=== PATIENT | female | born 1995 | race Caucasian/White ===

== ENCOUNTER 2020-09-05 10:33 | Emergency (ER) | payer OTHER, SELFPAY ==
--- NOTE | ~2020-09-05 | XR_ITS ---
EXAMINATION: XR chest 1V portable 09/05/2020 11:09 INDICATION: Cough PROCEDURE: AP portable chest COMPARISON: No prior studies for comparison. FINDINGS: The lungs are clear. The cardiomediastinal silhouette is within normal limits. There are no pleural effusions. There is no pneumothorax suspected. IMPRESSION: 1: NO ACUTE CARDIOPULMONARY DISEASE. Reviewed, dictated and finalized at location A. [employer] EQUIPMENT REPAIRER
[2020-09-05 10:48] VITALS: BP 127/80; PULSE 84; RESP 20; TEMP 36.7; O2SAT 100
[2020-09-05 11:56] VITALS: BP 124/81; PULSE 75; RESP 20; O2SAT 100
--- NOTE | 2020-09-05 12:35 | ED.GENADULT ---
HPI - General Adult General Chief complaint: Upper Respiratory Infection Stated complaint: Body Aches Time Seen by Provider: 09/05/20 10:43 Source: patient Mode of arrival: ambulatory Limitations: no limitations History of Present Illness HPI narrative: Patient is a 25-year-old female who presents to emergency department for evaluation congestion rhinorrhea nonproductive cough some body aches and chills for the last 2 to 3 days denies any dyspnea chest pain vomiting diarrhea sick contacts has been trying [id number] medications with some improvement is currently breast-feeding presents in no distress Related Data Allergies Allergy/AdvReac Type Severity Reaction Status Date / Time NUTS Allergy Severe THROAT Uncoded 09/05/20 10:50 SALVATORE Review of Systems Review of Systems: All systems reviewed & are unremarkable except as noted in HPI and below PMFSH Past Medical History Medical History Ear infection Surgical History Surgical History History of ear surgery Social History Social History Gender identity (if verbalized by the patient): Female Exam Narrative: Exam Narrative: GENERAL: Well-appearing, well-nourished, and in no acute distress. HEAD: Normocephalic, atraumatic. EYES: PERRLA and EOMI. ENT: Nares clear, no rhinorrhea or epistaxis. Mucous membranes moist. CHEST: Clear to auscultation. No respiratory distress. No wheezes rales or rhonchi HEART: Regular rate and rhythm. No murmur heard. EXTREMITIES: Normal range of motion. No edema. SKIN: Warm, dry, no rash. NEURO: No focal deficits. Alert and oriented x3. Cranial nerves II through XII grossly intact PSYCH: Normal mood and affect. Course Course Emergency Course: Patient evaluated tested for Covid will be sent home to quarantine advised to follow with the on-call primary care to obtain her results she understands that this is the means by which she must get her results patient with normal vital signs ABCs intact and stable no hypoxemia no pneumonia felt appropriate for outpatient reevaluation Vital Signs Vital signs: Vital Signs Temperature 98.0 F 09/05/20 10:48 Pulse Rate 84 09/05/20 10:48 Respiratory Rate 20 09/05/20 10:48 Blood Pressure 127/80 09/05/20 10:48 Pulse Oximetry 100 09/05/20 10:48 Temperature 98.0 F 09/05/20 10:48 Pulse Rate 75 09/05/20 11:56 Respiratory Rate 20 09/05/20 11:56 Blood Pressure 124/81 09/05/20 11:56 Pulse Oximetry 100 09/05/20 11:56 Medical Decision Making MDM Narrative Medical decision making narrative: Patient tested for Covid felt appropriate for outpatient reevaluation Vital Signs Vital Signs: Vital Signs Temperature 98.0 F 09/05/20 10:48 Pulse Rate 84 09/05/20 10:48 Respiratory Rate 20 09/05/20 10:48 Blood Pressure 127/80 09/05/20 10:48 Pulse Oximetry 100 09/05/20 10:48 Temperature 98.0 F 09/05/20 10:48 Pulse Rate 75 09/05/20 11:56 Respiratory Rate 20 09/05/20 11:56 Blood Pressure 124/81 09/05/20 11:56 Pulse Oximetry 100 09/05/20 11:56 Lab Data Labs: Lab Results 09/05/20 Range/Units 11:52 SARS-CoV-2 RNA (RT-PCR) Pending Discharge Plan Discharge Clinical Impression: Upper respiratory infection Patient Disposition: Home, Self-Care Condition: Stable Instructions: Antibiotic Form, COVID-19 (Coronavirus Disease 2019) (ED) Additional Instructions: Follow up with your primary care provider within 1-2 days to set up for reevaluation and to obtain your COVID-19 results. Go to ER for shortness of breath, difficulty breathing, chest pain, fever/chills, weakness Take any prescribed medications as directed. Self quarantine and you have obtained your results and been advised otherwise by primary care If you do not have a drug allergy to t
[2020-09-05 12:57] VITALS: BP 120/84; PULSE 70; RESP 20; O2SAT 99
[2020-09-05 23:38] LABS: SARS-CoV-2 RNA PCR Positive
== END 2020-09-05 12:59 | disposition home or self-care (01) ==
PROVIDERS: Emergency Medicine Emergency Medical Services; Emergency Provider Emergency Medicine
DX: U07.1 COVID-19 (principal); J06.9 Acute upper respiratory infection, unspecified
CPT/HCPCS: 71045; 99283; C9803; U0003

== ENCOUNTER 2020-11-12 23:11 | Emergency (ER) | payer OTHER, SELFPAY ==
[2020-11-12 23:12] VITALS: BP 135/77; PULSE 62; RESP 16; TEMP 36.7; O2SAT 100
--- NOTE | 2020-11-12 23:37 | ED.GENADULT ---
HPI - General Adult General Chief complaint: Extremity Problem,Nontraumatic Stated complaint: bilateral foot pain Time Seen by Provider: 11/12/20 23:19 Source: patient Mode of arrival: ambulatory Limitations: no limitations History of Present Illness HPI narrative: Patient is a 25-year-old female who presents with bilateral plantar surface foot pain for the last couple days noting that she was standing all day working and had wet feet which were cold patient has continued to have some pain to the plantar surface of the feet since. Patient denies any injury or trauma. Patient denies other pain or concerns presents in no distress with normal gait Related Data Allergies Allergy/AdvReac Type Severity Reaction Status Date / Time NUTS Allergy Severe THROAT Uncoded 09/05/20 10:50 SALVATORE Review of Systems Review of Systems: All systems reviewed & are unremarkable except as noted in HPI and below PMFSH Past Medical History Medical History Ear infection Surgical History Surgical History History of ear surgery Social History Social History Gender identity (if verbalized by the patient): Female Exam Narrative: Exam Narrative: GENERAL: Well-appearing, well-nourished, and in no acute distress. HEAD: Normocephalic, atraumatic. EYES: PERRLA and EOMI. ENT: Nares clear, no rhinorrhea or epistaxis. Mucous membranes moist. EXTREMITIES: Normal range of motion. No edema. Tenderness of the feet bilateral plantar surfaces no abnormality remainder of feet nontender SKIN: Warm, dry, no rash. NEURO: No focal deficits. Alert and oriented x3. Cranial nerves II through XII grossly intact. Neurovascularly intact PSYCH: Normal mood and affect. Course Course Emergency Course: Patient with bilateral foot pain no distress felt appropriate for outpatient reevaluation agreeing to follow-up as instructed Vital Signs Vital signs: Vital Signs Temperature 98.1 F 11/12/20 23:12 Pulse Rate 62 11/12/20 23:12 Respiratory Rate 16 11/12/20 23:12 Blood Pressure 135/77 11/12/20 23:12 Pulse Oximetry 100 11/12/20 23:12 Temperature 98.1 F 11/12/20 23:12 Pulse Rate 62 11/12/20 23:12 Respiratory Rate 16 11/12/20 23:12 Blood Pressure 135/77 11/12/20 23:12 Pulse Oximetry 100 11/12/20 23:12 Medical Decision Making MDM Narrative Medical decision making narrative: Patients injury or pain is consistent with musculoskeletal etiology. No signs of neurological or vascular compromise on exam. Compartments and tisues are soft without signs of compartment syndrome. Pain is felt appropriate for further evaluation on an outpatient basis. Vital Signs Vital Signs: Vital Signs Temperature 98.1 F 11/12/20 23:12 Pulse Rate 62 11/12/20 23:12 Respiratory Rate 16 11/12/20 23:12 Blood Pressure 135/77 11/12/20 23:12 Pulse Oximetry 100 11/12/20 23:12 Temperature 98.1 F 11/12/20 23:12 Pulse Rate 62 11/12/20 23:12 Respiratory Rate 16 11/12/20 23:12 Blood Pressure 135/77 11/12/20 23:12 Pulse Oximetry 100 11/12/20 23:12 Discharge Plan Discharge Clinical Impression: Acute foot pain Patient Disposition: Home, Self-Care Condition: Stable Instructions: Antibiotic Form, Foot Sprain (ED) Additional Instructions: Limited weight on the affected leg until able to bear weight without pain. Rest and elevate extremity. Pain medication as needed and directed. Follow up with your doctor for further care next 7 days. Return if symptoms worsen or concerns Prescriptions: No Action fluticasone propionate [Flonase Allergy Relief] 50 mcg/actuation spray,suspension 2 spray intranasal DAILY Qty: 9.9 RF: 0 loratadine [Claritin] 10 mg tablet 10 mg PO DAILY PRN (Reason: allergy symptoms) Qty: 10 RF: 0 famotidine [Pepcid]
== END 2020-11-13 | disposition home or self-care (01) ==
LOC: ANHED 23:51
PROVIDERS: Emergency Provider Emergency Medicine
DX: M79.672 Pain in left foot (principal); M79.671 Pain in right foot
CPT/HCPCS: 99281

== ENCOUNTER 2021-01-24 13:38 | Emergency (ER) | payer OTHER, SELFPAY ==
--- NOTE | ~2021-01-24 | XR_ITS ---
EXAMINATION: XR ankle RT min 3V DATE: 01/24/2021 14:03 INDICATION: Right ankle injury and pain. TECHNIQUE: 4 views of right ankle were obtained. COMPARISON: None. FINDINGS: Bone alignment is normal. No fracture. Joint spaces are well maintained. There is an enthes ophyte at plantar aspect of calcaneal tuberosity. Ankle soft tissue swelling is noted. IMPRESSION: 1. No fracture. Reviewed, dictated and finalized at location A. IMPRESSION: 1. No fracture.
[2021-01-24 13:46] VITALS: BP 115/68; PULSE 65; RESP 16; TEMP 36.2; O2SAT 100
--- NOTE | 2021-01-24 13:57 | ED.LOWEXIN ---
HPI - Extremity Injury (Lower) General Chief Complaint: Extremity Injury, Lower Stated Complaint: Ear Pain,Ankle Pain Time Seen by Provider: 01/24/21 13:47 Source: patient and RN notes reviewed Mode of arrival: ambulatory Limitations: no limitations History of Present Illness HPI Narrative: Patient presents today complaint of right ear pain since yesterday with a 3-day history of a head cold with symptoms including a cough, congestion, and rhinorrhea. She has been taking DayQuil, allergy medication without relief. She currently rates her ear pain 02/04. Denies fever, shortness of breath, or difficulty swallowing. She does report decreased hearing in her right ear. She also reports that she has had a hole in her right eardrum since she was a child. Patient also reports right ankle pain for 1 to 2 weeks after a fall and rolling her ankle while walking. She has been wrapping an Franck wrap and taking ibuprofen without relief. Denies numbness or tingling in the leg or foot. MD complaint: ankle injury Related Data Allergies Allergy/AdvReac Type Severity Reaction Status Date / Time NUTS Allergy Severe THROAT Uncoded 01/24/21 13:43 ALIYAHMitzi Review of Systems Review of Systems: Narrative: CONSTITUTIONAL: Denies body aches, fever, chills, or sweats. EYES: Denies visual changes, redness, or discharge. ENT: Denies sore throat. + Ear pain, congestion, rhinorrhea CARDIOVASCULAR: Denies chest pain, palpitations, or edema. RESPIRATORY: Denies dyspnea. + Cough GASTROINTESTINAL: Denies abdominal pain, nausea, vomiting, or diarrhea. GENITOURINARY: Denies dysuria or hematuria. SKIN: Denies rash, itching, or wounds. MUSCULOSKELETAL: Denies back pain, or myalgia. + Right ankle pain NEUROLOGIC: Denies headache, numbness, tingling, or weakness. PSYCH: Denies depression or anxiety. [facility] Past Medical History Medical History Ear infection Surgical History Surgical History History of ear surgery Social History Social History Gender identity (if verbalized by the patient): Female Comments At time of signature, I have reviewed and agree with nursing past medical, surgical, social and family history unless otherwise noted. Please see nursing chart for further information. There is no relevant family history pertinent to the presenting complaint Exam Narrative: Exam Narrative: GENERAL: Well-appearing, well-nourished, and in no acute distress. HEAD: Normocephalic, atraumatic. EYES: EOMI. No redness or drainage. Conjunctivae normal. ENT: Mucous membranes pink and moist. Nares congested. No rhinorrhea. Left TM normal. Right TM severely erythematous and dull. Canal normal and dry. Right TM does have an opening in the anterior portion. Throat normal. Uvula midline. NECK: Normal AROM. Supple. No lymphadenopathy. CHEST: No respiratory distress. Clear to auscultation. HEART: Regular rate and rhythm. No murmur appreciated. Normal peripheral pulses. EXTREMITIES: Right ankle: Lateral ankle malleolus is mildly erythematous and shows some mild ecchymosis. It is nontender. Patient has some tenderness to the medial ankle. The medial ankle does not have any edema or ecchymosis. Patient has half dollar sized area of ecchymosis to the dorsal foot without edema or tenderness. Distal sensation intact. Capillary refill normal. Pedal pulse normal. Full range of motion of toes and ankle without pain. SKIN: Warm, dry, no rash. Capillary refill normal. Normal skin turgor. NEURO: No focal deficits. Alert and oriented x3. Gait steady. PSYCH: Normal affect. No signs of depression or anxiety. Course Vital Signs Vital signs: Vital Signs Temperature 97.1 F L 01/24/21 13:46 Pulse Rate 65 01/24/21 13:46 Respiratory Rate 16 01/24/21 13:46 Blood Pressure 115/68 01/24/21 13:4
== END 2021-01-24 14:21 | disposition home or self-care (01) ==
PROVIDERS: Emergency Provider Nurse Practitioner
DX: H66.91 Otitis media, unspecified, right ear (principal); S93.401A Sprain of unspecified ligament of right ankle, initial encounter; X50.9XXA Other and unspecified overexertion or strenuous movements or postures, initial encounter
CPT/HCPCS: 73610; 99213; G0463

== ENCOUNTER 2022-07-27 13:38 | Outpatient (CLI) | payer OTHER, SELFPAY ==
[2022-07-27 14:45] LABS: Hepatitis B Surface Antigen Negative (Negative)
[2022-07-27 14:50] LABS: HAV RESULT Negative (Negative)
[2022-07-27 14:55] LABS: HIV 1/2 Ab P24 Ag Result Negative (Negative)
[2022-07-27 15:02] LABS: Hepatitis C Virus Antibody Negative (Negative)
[2022-07-27 16:39] LABS: Rapid Plasma Reagin Non-Reactive (NonReactive)
== END 2022-07-27 13:39 | disposition home or self-care (01) ==
LOC: ANHLAB 13:39
PROVIDERS: PCP Nurse Practitioner Family; Visit Provider Obstetrics & Gynecology
DX: A64 Unspecified sexually transmitted disease (principal)
CPT/HCPCS: 36415; 86592; 86695; 86696; 86703; 86709; 86803; 87340; G0432

== ENCOUNTER 2023-01-26 13:39 | Outpatient (CLI) | payer OTHER, SELFPAY ==
[2023-01-26 14:37] LABS: Beta HCG Quantitative < 2.39 mIU/ML
== END 2023-01-26 13:40 | disposition home or self-care (01) ==
LOC: ANHLAB 13:40
PROVIDERS: PCP Nurse Practitioner Family; Visit Provider Obstetrics & Gynecology
DX: N92.6 Irregular menstruation, unspecified (principal)
CPT/HCPCS: 36415; 84702

== ENCOUNTER 2023-07-07 16:03 | Outpatient (CLI) | payer OTHER, SELFPAY ==
--- NOTE | ~2023-07-07 | US_ITS ---
EXAMINATION: US pelvic complete w TV DATE: 07/07/2023 17:11 INDICATION: Encounter for routine checking of intrauterine device TECHNIQUE: Multiple transabdominal and transvaginal sonographic images of the pelvis were obtained. COMPARISON: Ultrasound 07/18/2022 FINDINGS: TRANSABDOMINAL ULTRASOUND: The uterus measures 6.1 x 3.6 x 5.2 cm. There is no free fluid in the pelvis. TRANSVAGINAL ULTRASOUND: The endometrial complex measures 5 mm in thickness. There is an intrauterine device in expected posit ion. The right ovary measures 2.7 x 1.1 x 1.6 cm. The left ovary measures 3.0 x 3.2 x 2.0 cm. There i s normal vascular flow in the ovaries. IMPRESSION: 1. Intrauterine device in expected position. Reviewed, dictated and finalized at location E. [employer]OBILE DESIGNER
== END 2023-07-07 16:04 | disposition home or self-care (01) ==
PROVIDERS: PCP Nurse Practitioner Family; Visit Provider Obstetrics & Gynecology
DX: R10.2 Pelvic and perineal pain (principal); Z30.431 Encounter for routine checking of intrauterine contraceptive device
CPT/HCPCS: 76830; 76856

== ENCOUNTER 2023-11-13 10:40 | Emergency (ER) | payer OTHER, SELFPAY ==
[2023-11-13 10:47] VITALS: BP 136/96; PULSE 83; RESP 18; TEMP 36.4; O2SAT 99
--- NOTE | 2023-11-13 11:03 | ED.GENADULT ---
HPI - General Adult General Chief complaint: Environmental Exposure Stated complaint: Black mold exposure Time Seen by Provider: 11/13/23 10:56 History of Present Illness HPI narrative: Patient is a 28-year-old female who presents ER with concerns for black mold exposure. She moved into a home 2 days ago discovered some black mold down by the firmness. Today she woke up with some itchy eyes. She is here with her 2 children 1 of which has itchy eyes with eye crest stuck to the eyelashes. She has no change in vision. No difficulty breathing. No wheezing or cough. Related Data Home Medications Medication Instructions Recorded Confirmed levonorgestrel 21 mcg/24 hours (8 1 device intrauterine ONCE 06/19/23 06/19/23 yrs) 52 mg intrauterine device (Mirena) Allergies Allergy/AdvReac Type Severity Reaction Status Date / Time NUTS Allergy Severe THROAT Uncoded 06/19/23 13:50 ALIYAHLLS Review of Systems Constitutional: Constitutional: Reports no additional constitutional complaints Eyes: Eyes: Denies blurry vision, Denies eye discharge, Denies dry eyes and Reports itchy eyes ENT: Reports system reviewed and no additional complaints, except as documented Respiratory: Respiratory: Reports no additional respiratory complaints PMF Past Medical History Medical History Ear infection Sexually transmissible disease Surgical History Surgical History H/O gynecological procedure mirena iud insertion - 01/27/2023 History of ear surgery Family History Family History Grandparent Diabetes mellitus Social History Social History Smoking status: Never smoker Alcohol intake: current Alcohol use details: social Substance use: never Substance use type: does not use Lack of Transportation: No Lack of Food: Never True Current Housing: I Have Housing Concerned About Future Housing: No Difficulty Paying Gas/Electric Bills: No Difficulty Paying for Meds: No Currently Unemployed: No Education: High School Diploma/GED Difficulty w/ Childcare or Family Care: No Living arrangements: with family Occupation/Education: occupation 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 HEAD: Normocephalic, atraumatic. EYES: PERRL and EOMI. Normal appearing conjunctiva. ENT: Mucous membranes moist. Uvula midline, normal tonsils. CHEST: Clear to auscultation. No respiratory distress. HEART: Regular rate and rhythm. Normal peripheral pulses. EXTREMITIES: Normal range of motion. No edema. NEURO: Alert and oriented x3. PSYCH: Normal mood and affect. Course Course Emergency Course: Patient given reassurance. Terms of black mold is recommended she contact property edger tailer and the and abatement. Terms of her eyes she could be developing pinkeye from her child however there is no evidence of eye irritation or discharge. She also may be having environmental issues given the recent blooming of trees and shrubs. Vital Signs Vital signs: Vital Signs Temperature 97.6 F 11/13/23 10:47 Pulse Rate 83 11/13/23 10:47 Respiratory Rate 18 11/13/23 10:47 Blood Pressure 136/96 H 11/13/23 10:47 Pulse Oximetry 99 11/13/23 10:47 Temperature 97.6 F 11/13/23 10:47 Pulse Rate 83 11/13/23 10:47 Respiratory Rate 18 11/13/23 10:47 Blood Pressure 136/96 H 11/13/23 10:47 Pulse Oximetry 99 11/13/23 10:47 Medical Decision Making Vital Signs Vital Signs: Vital Signs Temperature 97.6 F 11/13/23 10:47 Pulse Rate 83 11/13/23 10:47 Re
== END 2023-11-13 11:24 | disposition home or self-care (01) ==
LOC: ANHED 11:16
PROVIDERS: Emergency Provider Emergency Medicine; PCP Nurse Practitioner Family
DX: H57.89 Other specified disorders of eye and adnexa (principal)
CPT/HCPCS: 99283

== ENCOUNTER 2025-08-02 21:42 | Emergency (ER) | payer OTHER, SELFPAY ==
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
[2025-08-02 21:43] VITALS: BP 125/55; PULSE 90; RESP 18; TEMP 36.7; O2SAT 100
[2025-08-03 00:47] VITALS: BP 102/69; PULSE 69; RESP 17; O2SAT 100
--- NOTE | 2025-08-03 01:42 | ED.LOWEXIN ---
HPI - Extremity Injury (Lower) General Chief Complaint: Extremity Injury, Lower Stated Complaint: L ankle injury Time Seen by Provider: 08/03/25 01:17 Source: patient Mode of arrival: ambulatory Limitations: no limitations History of Present Illness HPI Narrative: Patient is a 30-year-old female presenting to the emergency department complaining of a left ankle injury. Patient states she was roller-skating around 9:00 p.m. tonight when she inverted her left ankle and subsequently developed pain. Denies any other injuries. Denies any history of any broken bones in the left ankle. Denies any focal weakness or numbness. Related Data Home Medications ?Medication ?Instructions ?Recorded ?Confirmed ?Last Taken ?Type levonorgestrel (Mirena) 1 device intrauterine ONCE 06/19/23 04/21/25 Unknown History Allergies Allergy/AdvReac Type Severity Reaction Status Date / Time nut - unspecified Allergy Anaphylaxis Verified 08/03/25 00:44 Review of Systems Review of Systems: A 10 system review of systems was completed on the patient and is negative except for what is stated in the HPI. Nursing and ancillary documentation was reviewed. [facility] [place] Past Medical History Medical History (Updated 08/03/25 @ 01:54 by Mahendra Little DO) HSV-1 infection Exposure to sexually transmitted disease (STD) Sexually transmissible disease Ear infection Surgical History Surgical History H/O gynecological procedure mirena iud insertion - 01/27/2023 History of ear surgery Family History Family History Grandparent Diabetes mellitus Social History Social History Smoking status: Never smoker Alcohol intake: current Alcohol use details: social Substance use: never Substance use type: does not use Lack of Transportation: No Lack of Food: Never True Current Housing: I Have Housing Concerned About Future Housing: No Difficulty Paying Gas/Electric Bills: No Difficulty Paying for Meds: No Currently Unemployed: No Education: High School Diploma/GED Difficulty w/ Childcare or Family Care: No Living arrangements: with family Occupation/Education: occupation 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 No ecchymosis, abrasions. Mild swelling to the left lateral ankle. No breaks in the skin integrity. No crepitus. No mottling of the skin. Muscle = Active and passive range of motion tested and intact with dorsiflexion (tibialis anterior, extensor digitorum longus, extensor hallucis longus), inversion (tibialis posterior, flexor digitorum longus, flexor hallucis longus), eversion/plantarflexion (peroneus longus and peroneus brevis), plantarflexion (gastrocnemius and soleus). Ligament = No overt laxity of the ankle joint with external rotation, varus, valgus, anterior drawer testing. Calcaneofibular ligament without laxity on inversion stress testing or talar tilt. Innervation = Tibial nerve intact as patient is able to dorsiflex the toes. Peroneal nerve intact, patient is able to plantarflex the 1st digit. SILT in the deep peroneal nerve (dorsal web space of 1st and 2nd digit) and superficial peroneal nerve (dorsum of foot) distributions. SILT throughout dermatomal distributions of the lower extremity. Vascular = Dorsalis pedis and posterior tibial pulses are 2+. Digital capillary refill is 2 seconds. Other = Lower leg compartments (anterior, superficial and deep posterior, lateral) are neither firm or full. No tenderness to palpation of the medial posterior malleoli, calcaneus, tarsals, or base of the 5th metatarsal. Mild tenderness palpation of the lateral malleoli. No tenderness in the syndesmosis with squeeze test. No palpable defect over the achilles tendon and Carroll test is negative for tenderness or loss of plantarflexion. No fibular head or proximal fibular shaft TTP. No palpable peroneal tendon anterior dislocation or subluxation. Course Vital Signs Vital signs: Vital Signs Temperature 98.0 F 08/02/25 21:43 Pulse Rate 90 08/02/25 21:43 Respiratory Rate 18 08/02/25 21:43 Blood Pressure 125/55 L 08/02/25 21:43 Pulse Oximetry 100 08/02/25 21:43 Temperature 98.0 F 08/02/25 21:43 Pulse Rate 69 08/03/25 00:47 Respiratory Rate 17 08/03/25 00:47 Blood Pressure 102/69 08/03/25 00:47 Pulse Oximetry 100 08/03/25 00:47 Procedures Orthopedic Splinting/Casting Injury #1: Splinting/Casting Date: 08/03/25 Splinting/Casting Time: 02:15 Side: left Lower Extremity Injury Location: ankle Lower Extremity Immobilizer: posterior splint and stirrup splint Splint: prefabricated Pre-Procedure Neuro Vascular Exam: normal Post-Procedure Neuro Vascular Exam: normal Other Orthopedic Equipment: crutches MDM MDM Narrative Medical decision making narrative: Patient presents with the above complaint. Initial vitals are remarkable for no significant abnormalities. Physical examination as noted above. Plan discussed: Left ankle x-ray, ice pack, Toradol, extremity elevation. Left ankle x-ray preliminary findings radiology report is edema, no acute osseous findings. Patient informed of results and plan of care. Patient ordered a splint with a posterior short-leg and stirrups, crutches, nonweightbearing, follow up with Podiatry in 5 days. Patient was reassessed at the bedside. No changes in physical exam. Patient is in no acute distress. Good capillary refill in all distal digits, sensation intact to light touch, patient able to wiggle all her toes. The patient has remained stable throughout the entire ED visit. Counseled patient regarding diagnostic results and potential diagnosis. Anticipatory guidance provided. Patient instructed to follow up with Podiatry in 5 days. Patient counseled on: false reassurance from an emergency department evaluation; no current evidence of a medical emergency; return immediately for any new, recurrent, worsening, concerning, or refractory symptoms. Patient prescribed Tylenol and Motrin. Prescription sent to preferred pharmacy. Medications discussed with patient. Additional verbal and printed discharge instructions were given and discussed with the patient. Patient verbally acknowledges understanding of condition and discharge instructions. All questions were answered to the patient's satisfaction. Patient is in agreement with the plan of care. The patient is stable for discharge and was discharged without incident. Differential Diagnosis Differential Diagnosis: Sprain, strain, fracture, other acute traumatic injuries. Discharge Plan Discharge Clinical Impression: Left ankle sprain, Injury of ankle, left Patient Disposition: Home Condition: Stable Instructions: Antibiotic Form, Ankle Sprain (ED), Crutch Instructions (ED), Splint Care (ED), P.R.I.C.E. Treatment (ED), Ankle Strain (ED) Additional Instructions: Follow-up with podiatry in 5 days, call to schedule an appointment. Keep your left leg elevated above your heart to help with swelling. Take Tylenol and Motrin as needed for any discomfort. Use the crutches as directed. Nonweightbearing until cleared by Podiatry. Return immediately to the emergency department for any new or concerning symptoms especially any emergent concerns for life, limb, eyesight. Patient Language: Ukrainian Prescriptions: New acetaminophen 500 mg tablet 500 mg PO Q6H PRN (Reason: pain) Qty: 30 0RF ibuprofen 400 mg tablet 400 mg PO Q6H PRN (Reason: pain) Qty: 30 0RF No Action Mirena 21 mcg/24 hours (8 yrs) 52 mg intrauterine device 1 device intrauterine ONCE Rx Instructions: as a single dose metronidazole 500 mg tablet 500 mg PO Q12H Qty: 14 0RF fluconazole 150 mg tablet 150 mg PO Q72H Qty: 2 0RF Rx Instructions: as a single dose Follow-up/Referrals: Guido Castelan Jr., DPM [Physician, Podiatry] - 08/07/25 Lisa Terrell DPM [Physician, Podiatry] - 08/07/25 UNKNOWN,DOCTOR [Primary Care Provider] Stand Alone Forms: Work/School Release IP Time of Disposition: 01:55
[2025-08-03] MEDS: KETOROLAC 30 MG/ML VIAL (*BKC) 15 MG IM (01:56)
[2025-08-03 02:28] VITALS: BP 107/62; PULSE 75; RESP 18; O2SAT 99
== END 2025-08-03 02:31 | disposition home or self-care (01) ==
PROVIDERS: Emergency Provider Student in an Organized Health Care Education/Training Program
DX: S93.402A Sprain of unspecified ligament of left ankle, initial encounter (principal); X50.9XXA Other and unspecified overexertion or strenuous movements or postures, initial encounter; Y93.51 Activity, roller skating (inline) and skateboarding
CPT/HCPCS: 73610; 96372; 99283; J1885